=== PATIENT | female | born 1975 | race Caucasian/White ===

== ENCOUNTER 2017-10-02 20:51 | Emergency (ER) | payer SELFPAY ==
[2017-10-02 21:14] VITALS: BP 135/97
[2017-10-02] MEDS ORDERED: IBUPROFEN 800 MG TABLET PO ONE (21:39)
[2017-10-02] MEDS ORDERED: DIPH/PERTUSS(ACELL)/TETANUS VAC/PF 0.5 ML SYR (>=10YO) IM ONE (21:39)
--- NOTE | 2017-10-02 21:42 | RADIOLOGY REPORT (SQ) ---
EXAM DESCRIPTION: ANKLE RIGHT COMPLETE COMPLETED DATE/TIME: 10/02/2017 9:28 pm REASON FOR STUDY: Pain s/p injury COMPARISON: None. NUMBER OF VIEWS: Three views. TECHNIQUE: AP, lateral, and oblique radiographic images acquired of the right ankle. LIMITATIONS: None. FINDINGS: MINERALIZATION: Normal. BONES: No acute fracture or dislocation. No worrisome bone lesions. JOINTS: No effusions. SOFT TISSUES: No soft tissue swelling. No foreign body. OTHER: No other significant finding. IMPRESSION: NO RADIOGRAPHIC EVIDENCE OF ACUTE INJURY. TECHNICAL DOCUMENTATION: JOB ID: [id number] 2010 [employer]- All Rights Reserved Reading location - IP/workstation name: [email or web address]
--- NOTE | 2017-10-02 21:43 | RADIOLOGY REPORT (SQ) ---
EXAM DESCRIPTION: FOOT RIGHT COMPLETE COMPLETED DATE/TIME: 10/02/2017 9:28 pm REASON FOR STUDY: Pain s/p injury COMPARISON: None. NUMBER OF VIEWS: Three views. TECHNIQUE: AP, lateral and oblique radiographic images acquired of the right foot. LIMITATIONS: None. FINDINGS: MINERALIZATION: Normal. BONES: No acute fracture or dislocation. No worrisome bone lesions. JOINTS: No effusions. SOFT TISSUES: No soft tissue swelling. No foreign body. OTHER: No other significant finding. IMPRESSION: NO RADIOGRAPHIC EVIDENCE OF ACUTE INJURY. TECHNICAL DOCUMENTATION: JOB ID: [id number] [id number] 2010 [employer]- All Rights Reserved Reading location - IP/workstation name: [email or web address]
--- NOTE | 2017-10-02 22:10 | ER Document Report ---
ED General - General Chief Complaint: Ankle Injury Stated Complaint: RIGHT ANKLE INJURY Time Seen by Provider: 10/02/17 21:19 Mode of Arrival: Ambulatory Information source: Patient TRAVEL OUTSIDE OF THE [place] IN LAST 30 DAYS: No - HPI Notes: Patient is a 42-year-old female presents emergency department with report that she had a wooden door fall upon her right foot sustaining an injury just prior to arrival. The patient presents with right foot pain and ankle pain with contusion and abrasion to the dorsal aspect of the foot. The patient states the pain is worse when she tries to dorsiflex the foot. She denies any knee pain or numbness or paresthesia or other injury. She is unaware of her last tetanus, and a tetanus shot was given. No focal weakness. - Related Data Allergies/Adverse Reactions: morphine Allergy (Verified 10/02/17 20:55) promethazine [From Phenergan] Allergy (Verified 10/02/17 20:55) Past Medical History - General Information source: Patient - Social History Smoking Status: Never Smoker Frequency of alcohol use: None Drug Abuse: None Lives with: Alone Family History: Reviewed & Not Pertinent Review of Systems - Review of Systems -: Yes All other systems reviewed and negative Physical Exam - Vital signs Vitals: Temp Pulse Resp BP Pulse Ox 98.7 F 96 18 135/97 H 99 10/02/17 21:12 10/02/17 21:12 10/02/17 21:12 10/02/17 21:12 10/02/17 21:12 - Notes Notes: No obvious distress HEENT atraumatic normocephalic conjunctiva clear Examination right lower extremity shows nonfocal hip and knee exam. Patient has pain to the lateral aspect of the right ankle extending to the dorsal aspect of the foot where there is contusion and abrasion at the midfoot. Distally there is good capillary refill and pulses. There is no proximal erythema or adenopathy. No calcaneal pain. Tendon function is intact. No nailbed injury. Course - Re-evaluation Re-evalutation: 10/02/17 22:17 Patient was given a tetanus shot and antibiotic ointment was applied to the wound and patient was given ibuprofen and a Sivakumar wrap to the wound. She states she has crutches at home. Would advise podiatry or orthopedic follow-up if not improved. No evidence for fracture or tendon injury or neurovascular compromise. - Vital Signs Vital signs: Temp Pulse Resp BP Pulse Ox 98.7 F 96 18 135/97 H 99 10/02/17 21:12 10/02/17 21:12 10/02/17 21:12 10/02/17 21:12 10/02/17 21:12 Discharge - Discharge Clinical Impression: Abrasion Contusion Qualifiers: Encounter type: initial encounter Contusion area: foot Laterality: right Qualified Code(s): S90.31XA - Contusion of right foot, initial encounter Foot sprain Qualifiers: Encounter type: initial encounter Laterality: right Qualified Code(s): S93.601A - Unspecified sprain of right foot, initial encounter Ankle sprain Qualifiers: Encounter type: initial encounter Involved ligament of ankle: other ligament Laterality: right Qualified Code(s): S93.491A - Sprain of other ligament of right ankle, initial encounter Condition: Stable Disposition: HOME, SELF-CARE Instructions: Abrasions ([facility]), Sivakumar Wrap ([facility]), Sprain ([facility]), Sprained Ankle ( [facility]) Additional Instructions: Apply antibiotic ointment to the wound. Use an Sivakumar wrap and limit ambulation as needed for pain. Use ice in the next 48 hours as needed. Elevate. Follow-up with podiatry or orthopedics if not improved in 2 weeks. Use crutches as needed for pain. Prescriptions: Ibuprofen [Motrin 800 mg Tablet] 800 mg PO Q8H PRN #30 tab PRN Reason: Referrals: ALY HERRING DPM [ACTIVE STAFF] - Follow up as needed
== END 2017-10-02 22:28 | disposition home or self-care (01) ==
LOC: ER 20:51
DX: S90.31XA Contusion of right foot, initial encounter (principal); S93.601A Unspecified sprain of right foot, initial encounter; S93.491A Sprain of other ligament of right ankle, initial encounter; W20.8XXA Other cause of strike by thrown, projected or falling object, initial encounter; Z23 Encounter for immunization; Z88.6 Allergy status to analgesic agent
CPT/HCPCS: 90471; 90715; 99283